=== PATIENT | female | born 1960 | race Caucasian/White ===

== ENCOUNTER 2016-10-20 11:19 | Observation (INO) | payer OTHER ==
[2016-10-19 16:59] VITALS: BMI 31.4
[2016-10-20] VITALS (24 sets, daily range): BP systolic 106–149; BP diastolic 56–87; PULSE 58–92; RESP 12–23; Ht 162.6 cm; Wt 86.8 kg
[~2016-10-20] VITALS: Ht 162.6 cm; Wt 86.8 kg
[~2016-10-20 11:19] MED LIST: CEFAZOLIN 1 GM/50 ML (PMX) 50 ML IVPB ONE; DEXAMETHASONE 4 MG/ML 1 ML INJ ONE; ONDANSETRON 4 MG INJ ONE; SOD CHLORIDE 0.9% 1,000 ML IV SCH
[2016-10-20] MEDS ORDERED: PROPOFOL 0 ML ONE (15:04)
[2016-10-20] MEDS ORDERED: PROPOFOL 100 ML ONE (15:05)
[2016-10-20] MEDS ORDERED: ISOSULFAN BLUE 1% 5 ML INJ SC ONE (16:06)
[2016-10-20] MEDS ORDERED: LIDOCAINE 2% (SDV) 5 ML INJ ONE (16:32)
[2016-10-20] MEDS ORDERED: DEXAMETHASONE 4 MG/ML 1 ML INJ ONE (16:32)
[2016-10-20] MEDS ORDERED: CEFAZOLIN 1 GM INJ ONE (16:32)
[2016-10-20] MEDS ORDERED: PHENYLephrine (100 MCG/ML) 5ML SYG ONE (16:34)
[2016-10-20] MEDS ORDERED: METOCLOPRAMIDE 10 MG INJ IV PRN (17:00)
[2016-10-20] MEDS ORDERED: DIPHENHYDRAMINE 50 MG INJ IV PRN (17:00)
[2016-10-20] MEDS ORDERED: EPHEDrine SULFATE 50 MG/5 ML SYG IV PRN (17:00)
[2016-10-20] MEDS ORDERED: MEPERIDINE 25 MG INJ IV PRN (17:00)
[2016-10-20] MEDS ORDERED: OXYCODONE/ACETAMINOPHEN (5/325) TAB PO PRN ×2 (17:00)
[2016-10-20] MEDS ORDERED: FENTAnyl 50 MCG/ML VIAL IV PRN ×3 (17:00)
[2016-10-20] MEDS ORDERED: HYDROmorphONE (0.2 MG/ML) 10ML SYG IV PRN ×3 (17:00)
[2016-10-20] MEDS ORDERED: LABETALOL HCL 20MG INJ IV PRN (17:00)
[2016-10-20] MEDS ORDERED: ONDANSETRON 4 MG INJ IV PRN (17:00)
[2016-10-20] MEDS ORDERED: hydrALAzine 20 MG INJ IV PRN (17:00)
[2016-10-20] MEDS ORDERED: morphine 2 MG INJ IV PRN (18:00)
[2016-10-20] MEDS: D5W-0.45 NACL + KCL 20 MEQ 1,000 ML IV SCH (21:56)
[2016-10-21 00:08] VITALS: BP 139/79; PULSE 95; RESP 19
[2016-10-21 02:00] VITALS: BP 132/71; RESP 20
[2016-10-21 03:40] VITALS: PULSE 105
[2016-10-21] MEDS: D5W-0.45 NACL + KCL 20 MEQ 1,000 ML IV SCH ×2 (04:00→08:35)
[2016-10-21 05:16] VITALS: BP 127/76; PULSE 100; RESP 18
[2016-10-21 07:57] VITALS: BP 127/74; RESP 18
--- NOTE | 2016-10-21 14:22 | PN ---
Date/Time of Note Date/Time of Note DATE: 10/21/16 TIME: 14:18 Assessment/Plan VTE Prophylaxis VTE Prophylaxis Intervention: ambulation Lines/Catheters IV Catheter Type (from Nrsg): Peripheral IV Assessment/Plan Assessment/Plan 56-year-old female: 1. Status post left mastectomy by Dr. Bean Postoperative day #1, patient cleared surgically to be discharged home per Dr. Bean with outpatient follow-up next week She will be provided with [place] or Percocet for pain Disposition: Discharged home with PCP and outpatient surgical follow-up Subjective 24 Hr Interval Summary Free Text/Dictation Patient doing well this morning, only need 1 dose of morphine overnight for pain control. No complaints this morning. There is no drain placed post left mastectomy. Dressing and bandages in place patient to be discharged home with follow-up with Dr. Bean next week. Dr. Nair has cleared the patient for discharge from the surgical standpoint according to the patient's nurse Exam/Review of Systems Vital Signs Vitals Vital Signs Date Time Temp Pulse Resp B/P Pulse Ox O2 Delivery O2 Flow Rate FiO2 10/21/16 07:57 98.6 88 18 127/74 96 10/21/16 05:16 Room Air 10/20/16 17:20 2.0 Intake and Output 10/20/16 10/20/16 10/21/16 15:00 23:00 07:00 Intake Total 920 ml 1060 ml Output Total 25 ml 400 ml Balance 895 ml 660 ml Exam Constitutional: alert, oriented, well developed Respiratory: clear to auscultation, normal air movement Cardiovascular: nl pulses, regular rate and rhythm Gastrointestinal: non-tender, soft Extremities: normal pulses 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
--- NOTE | 2016-10-21 14:24 | PDOCDIS ---
Discharge Instructions CONDITION Patient Condition: Stable HOME CARE INSTRUCTIONS: Special Diet: regular ACTIVITY: Activity Restrictions: Avoid heavy lifting Avoid Heavy Housework FOLLOW UP/APPOINTMENTS Follow-up Plan Follow-up with Dr. Bean next week Follow-up with primary care physician within 1 week ROSEMARY GONZALEZ Oct 21, 2016 14:24
[2016-10-21] MEDS ORDERED: HYDR-906 PO (14:25)
--- NOTE | 2016-10-26 11:22 | OPR ---
DATE OF OPERATION: 10/20/2016 PREOPERATIVE DIAGNOSIS: Invasive cancer, left breast. POSTOPERATIVE DIAGNOSIS: Invasive cancer, left breast. OPERATION PERFORMED: Left partial mastectomy and sentinel lymph node biopsy. ANESTHESIA: General. ANESTHESIOLOGIST: Dr. Kimble. SURGEON: Dr. Bean. BELT CUTTER: Dr. Sanford. INDICATIONS FOR PROCEDURE: The patient is an unfortunate 56-year- old female presented with a firm mass at the 8 o'clock location of her left breast next to the inframammary fold. Biopsy confirmed invasive cancer. She was counseled as to the need for surgery. She consented for left partial mastectomy and axillary dissection utilizing sentinel lymph node technique. She consented and was scheduled for surgery. OPERATIVE PROCEDURE: The patient was brought to the operating theater, placed under general endotracheal tube anesthesia. The left breast and axillary region was prepped and draped in usual the sterile fashion. A sterile fashion. Approximately 4 mL of Lymphazurin blue dye was injected. Generally in the breast gently massaged for approximately 12 minutes. At this point, a 4 cm incision was made in the left axillary hairline. Subcutaneous tissue was dissected with cautery down through the clavipectoral fascia. A dye-stained lymphatic was identified and traced to an obvious sentinel node. The node was meticulously dissected using LigaSure device. It was sent for intraoperative analysis performed by attending pathologist, Dr. Jarrett Michael, who stated that the node was grossly negative for cancer; therefore, no further lymph nodes were taken. The wound was irrigated. Minimal bleeding was controlled with cautery and the skin was then reapproximated with 4-0 Vicryl suture in subcuticular fashion. Attention was then directed to performing the partial mastectomy. A curvilinear incision was made directly over the palpable mass. Subcutaneous tissue was dissected with cautery. Skin hooks were used to elevate the skin edges and wide circumferential dissection of the tissue associated with the mass took place, taking care to ensure adequate margin. Dissection proceeded down to the pectoralis major fascia. Specimen was then transected off the fascia using cautery. It was oriented and sent for permanent pathologic analysis. The wound was irrigated. Minimal bleeding was controlled with cautery. The skin was then reapproximated with a deep dermal layer of 4-0 Vicryl sutures, followed by final skin approximation with 5-0 PDS sutures. Benzoin and Dermabond were applied to both incisions. The patient tolerated procedure well. ESTIMATED BLOOD LOSS: 20 cc. COMPLICATIONS: There were no complications. The patient was transported in stable condition to recovery room where a circumferential compression dressing was applied. Dictated By: Oliver Bean MD /bridget/quinn /Document#: [id number]
== END 2016-10-21 15:06 | disposition home or self-care (01) ==
LOC: SDS 11:19 → REC 17:54 → MS2 20:10 → SDS 21:16 → MS2 21:39
PROVIDERS: ADMIT Surgery Surgical Oncology; ATTEND Surgery Surgical Oncology
DX: C50.912 Malignant neoplasm of unspecified site of left female breast (principal); M19.90 Unspecified osteoarthritis, unspecified site; E11.9 Type 2 diabetes mellitus without complications; I10 Essential (primary) hypertension; I88.8 Other nonspecific lymphadenitis; Z17.0 Estrogen receptor positive status [ER+]
CPT/HCPCS: 19301; 38525; 38900; 82962; 88307; 88341; 88342; G0378; J0690; J1100; J1170; J2405; J3010; J3480; Q9968; J2370